=== PATIENT | female | born 1945 | race Caucasian/White ===

== ENCOUNTER 2020-04-10 16:37 | Emergency (ER) | payer MEDICARE, OTHER ==
[~2020-04-10] VITALS: Ht 167.6 cm; Wt 99.8 kg
[2020-04-10 17:01] LABS: BASOPHILS % 0.2 % (0.0-1.0); EOSINOPHILS # (AUTO) 0.1 (0.0-0.4); HEMATOCRIT 29.4 % (34.2-44.1); HEMOGLOBIN 9.1 g/dL (12.0-16.0); LYMPHOCYTES # (AUTO) 0.3 (1.0-3.2); LYMPHOCYTES % 3.9 % (18.0-39.1); MEAN CORPUSCULAR HEMOGLOBIN 27.4 pg (28-32); MEAN CORPUSCULAR VOLUME 88.6 fL (81-99); MONOCYTES # (AUTO) 0.2 (0.2-0.8); MONOCYTES % 2.5 % (4.4-11.3); NEUTROPHILS # (AUTO) 7.5 (2.1-6.9); NEUTROPHILS % 91.4 % (38.7-80.0); PLATELET COUNT 301 x10e3/uL (140-360); RED BLOOD COUNT 3.32 x10e6/uL (3.6-5.1); RED CELL DISTRIBUTION WIDTH 12.8 % (11.7-14.4)
[2020-04-10] MEDS ORDERED: WOMEN'S DAILY1 EAC2 PO (17:12)
[2020-04-10] MEDS ORDERED: OMEGA-31000 MG PO (17:12)
[2020-04-10] MEDS ORDERED: TRICOR48 MG PO (17:12)
[2020-04-10] MEDS ORDERED: B COMPLEX1 EACH PO (17:12)
[2020-04-10] MEDS ORDERED: KLOR-CON 1010 MEQ PO (17:12)
[2020-04-10] MEDS ORDERED: CRESTOR10 MG (17:12)
[2020-04-10] MEDS ORDERED: VALSARTAN40 MG PO (17:12)
[2020-04-10] MEDS ORDERED: GABAPENTIN300 MG PO (17:12)
[2020-04-10] MEDS ORDERED: FLUOXETINE HCL20 M1 PO (17:12)
[2020-04-10] MEDS ORDERED: NIACIN500 M3 PO (17:12)
[2020-04-10] MEDS ORDERED: ASPIR 8181 MG PO (17:12)
[2020-04-10] MEDS ORDERED: TRAZODONE HCL50 MG PO (17:12)
[2020-04-10] MEDS ORDERED: CRANBERRY450 M2 (17:13)
[2020-04-10] MEDS ORDERED: FERROUS SULFAT324 MG (17:13)
[2020-04-10 17:17] LABS: ALBUMIN/GLOBULIN RATIO 0.5 (0.8-2.0); CREATININE, SERUM 1.2 mg/dL (0.57-1.11)
[2020-04-10 17:23] LABS: CREATINE KINASE MB 1.9 ng/mL (0-5.0)
[2020-04-10] MEDS ORDERED: CEFTRIAXONE SOD 1 GM/NS 50 ML 50 ML IV ONE (17:30)
--- NOTE | 2020-04-10 17:47 | Emergency Department Note ---
History of Present Illnes History of Present Illness Chief Complaint: COVID PUI History of Present Illness This is a 74 year old female brought from home by EMS for evaluation of weakness. 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 Any updates have been documented here. Past Medical History Recent Fever: Yes Clinical Suspicion of Infectio: Yes New/Unexplained Change in Ment: No Past Medical History: Hypertension, Anemia, Anxiety, Depression, Other Mental Illness, Hyperlipedemia Other Medical History: MS ([place]) Social History Smoking Cessation: Never Smoker Alcohol Use: None Any Illegal Drug Use: No Physically hurt or threatened: No Review of Systems Review of Systems Constitutional: Reports weakness EENTM: Reports no symptoms Cardiovascular: Reports no symptoms Respiratory: Reports no symptoms Gastrointestinal: Reports no symptoms Genitourinary: Reports no symptoms Musculoskeletal: Reports no symptoms Integumentary: Reports no symptoms Neurological: Reports no symptoms Psychological: Reports no symptoms Endocrine: Reports no symptoms Hematological/Lymphatic: Reports no symptoms Physical Exam Related Data Allergies: Coded Allergies: No Known Allergies (Unverified , 04/10/20) Triage Vital Signs Vital Signs Date Time Temp Pulse Resp B/P (MAP) Pulse Ox O2 Delivery O2 Flow Rate FiO2 04/10/20 16:50 102.4 130 20 180/58 98 Room Air Vital signs reviewed: Yes Physical Exam CONSTITUTIONAL Constitutional: Present obese, Present cachectic, Present ill appearing HENT HENT: Present normocephalic, Present atraumatic, Present oropharynx clear/moist, Present nose normal HENT L/R: Present left ext ear normal, Present right ext ear normal EYES Eyes: Reports PERRL, Reports conjunctivae normal NECK Neck: Present ROM normal PULMONARY Pulmonary: Present effort normal, Present breath sounds normal CARDIOVASCULAR Cardiovascular: Present tachycardia, Present LLE edema, Present RLE edema GASTROINTESTINAL Abdominal: Present soft, Present nontender, Present bowel sounds normal GENITOURINARY Genitourinary: Present exam deferred SKIN Skin: Present warm, Present dry MUSCULOSKELETAL Musculoskeletal: Present ROM normal NEUROLOGICAL Neurological: Present weakness PSYCHOLOGICAL Psychological: Present mood/affect normal, Present judgement normal Results Laboratory Result Diagram: 04/10/200 04/10/20 1650 Laboratory Laboratory Tests Test 04/10/20 16:50 White Blood Count 8.24 x10e3/uL (4.8-10.8) Red Blood Count 3.32 x10e6/uL (3.6-5.1) Hemoglobin 9.1 g/dL (12.0-16.0) Hematocrit 29.4 % (34.2-44.1) Mean Corpuscular Volume 88.6 fL (81-99) Mean Corpuscular Hemoglobin 27.4 pg (28-32) Mean Corpuscular Hemoglobin Concent 31.0 g/dL (31-35) Red Cell Distribution Width 12.8 % (11.7-14.4) Platelet Count 301 x10e3/uL (140-360) Neutrophils (%) (Auto) 91.4 % (38.7-80.0) Lymphocytes (%) (Auto) 3.9 % (18.0-39.1) Monocytes (%) (Auto) 2.5 % (4.4-11.3) Eosinophils (%) (Auto) 1.0 % (0.0-6.0) Basophils (%) (Auto) 0.2 % (0.0-1.0) Neutrophils # (Auto) 7.5 (2.1-6.9) Lymphocytes # (Auto) 0.3 (1.0-3.2) Monocytes # (Auto) 0.2 (0.2-0.8) Eosinophils # (Auto) 0.1 (0.0-0.4) Basophils # (Auto) 0.0 (0.0-0.1) Absolute Immature Granulocyte (auto 0.08 x10e3/uL (0-0.1) Sodium Level 136 mmol/L (136-145) Potassium Level 5.0 mmol/L (3.5-5.1) Chloride Level 107 mmol/L (98-107) Carbon Dioxide Level 21 mmol/L (22-29) Anion Gap 13.0 mmol/L (8-16) Blood Urea Nitrogen 61 mg/dL (7-26) Creatinine 1.20 mg/dL (0.57-1.11) Estimat Glomerular Filtration Rate 44 ML/MIN (60-) BUN/Creatinine Ratio 51 (6-25) Glucose Level 250 mg/dL (74-118) Lactic Acid Level 2.4 mmol/L (0.5-2.0) Calcium Level 8.0 mg/dL (8.4-10.2) Total Bilirubin 0.3 mg/dL (0.2-1.2) Aspartate Amino Transf (AST/SGOT) 20 IU/L (5-34) Alanine Aminotransferase (ALT/SGPT) 14 IU/L (0-55) Alkaline Phosphatase 100 IU/L (40-150) Creatine Kinase 24 IU/L (29-168) Creatine Kinase MB 1.90 ng/mL (0-5.0) Troponin I 0.036 ng/mL (0-0.300) Total Protein 6.2 g/dL (6.5-8.1) Albumin 2.0 g/dL (3.5-5.0) Globulin 4.2 g/dL (2.3-3.5) Albumin/Globulin Ratio 0.5 (0.8-2.0) Lab results reviewed: Yes Imaging Imaging results reviewed: Yes Impressions [place] [id number] Patient Name: SALEEM JIMENEZ MR #: [id number] : 1945 Age/Sex: 74/F Req #: [id number] Adm Physician: Ordered by: AMINA ALEMAN DO Report #: [id number] Location: ER Room/Bed: Procedure: [id number] DX/CHEST SINGLE (PORTABLE) Exam Date: 04/10/20 Exam Time: 1654 REPORT STATUS: Signed EXAMINATION: CHEST SINGLE (PORTABLE) INDICATION: Cough. Possible Covid 19. COMPARISON: None FINDINGS: TUBES and LINES: None. LUNGS: There is hazy opacification of the bilateral lung bases, left moderate right. PLEURA: No pleural effusion or pneumothorax. HEART AND MEDIASTINUM: The cardiomediastinal silhouette is unremarkable. BONES AND SOFT TISSUES: No acute osseous lesion. Soft tissues are unremarkable. UPPER ABDOMEN: No free air under the diaphragm. IMPRESSION: Hazy opacification the bilateral lung bases, left more to right, which may represent atelectasis or developing multifocal pneumonia. Signed by: Tierney Del Valle MD on 04/10/2020 5:46 PM Dictated By: TIERNEY DEL VALLE MD 45 Transcribed By: SAMIRA on 04/10/201745 COPY TO: AMINA ALEMAN DO~ Assessment & Plan Medical Decision Making MDM 74 yof presents presents with signs and symptoms concerning for sepsis . Blood cx x 2 and blood cx ordered with abx given. Lactic acid obtained. Patient suspected to have the COVID-19 infection; aspects of the SEP-1 were deviated from to avoid fluid overload Assessment & Plan Final Impression: (1) UTI (urinary tract infection) (2) Sepsis (3) Person under investigation for COVID-19 Depart Disposition: ADMITTED Last Vital Signs Date Time Temp Pulse Resp B/P (MAP) Pulse Ox O2 Delivery O2 Flow Rate FiO2 04/10/20 16:50 102.4 130 20 180/58 98 Room Air Home Meds Active Scripts Azithromycin (Z-ERIKA) 250 Mg Tablet, 1 PKG PO DIRECTED, #1 PKG 0 Refills Prov:AMINA ALEMAN DO 04/11/20 Reported Medications Cranberry Fruit (CRANBERRY) 450 Mg Tablet 04/10/20 Ferrous Sulfate (FERROUS SULFATE) 324 Mg Tablet. 04/10/20 Rosuvastatin Calcium (CRESTOR) 10 Mg Tab THERAPEUTICALLY SUBSTITUTED WITH SIMVASTATIN 40MG 04/10/20 Gabapentin (GABAPENTIN) 300 Mg Capsule, 2 CAP PO DAILY, #60 CAP 04/10/20 Trazodone Hcl (TRAZODONE HCL) 50 Mg Tablet, 25 MG PO DAILY, #30 TAB 04/10/20 Fenofibrate (TRICOR) 48 Mg Tab, 48 MG PO DAILY, #30 TAB 04/10/20 Multivits,Ca,Minerals/Iron/Fa (WOMEN'S DAILY CAPLET) 1 Each Tablet, 1 TAB PO DAILY 04/10/20 Vitamin B Complex (B COMPLEX) 1 Each Tablet, 1 TAB PO DAILY 04/10/20 [place]-3 Fatty Acids (OMEGA-3) 1,000 Mg Capsule, 1 TAB PO DAILY 04/10/20 Potassium Chloride (KLOR-CON 10) 10 Meq Tablet.er, 1 TAB PO DAILY 04/10/20 Fluoxetine Hcl (FLUOXETINE HCL) 20 Mg Tablet, 40 MG PO DAILY 04/10/20 Aspirin (ASPIR 81) 81 Mg Tablet.dr, 1 TAB PO DAILY 04/10/20 Valsartan (Valsartan) 40 Mg Tablet, 1 TAB PO DAILY 04/10/20 Niacinamide (Niacin) 500 Mg Tablet, 1 TAB PO DAILY 04/10/20 Medications in the ED Ceftriaxone Sodium 50 ml @ 100 mls/hr ONCE ONCE IV ; Start 04/10/20 at 17:30; Stop 04/10/20 at 17:59 Azithromycin 250 ml @ 200 mls/hr ONCE ONCE IV ; Start 04/10/20 at 18:00; Stop 04/10/20 at 19:14 MAYANK NGUYEN DO Apr 10, 2020 17:47
[2020-04-10 17:56] LABS: BILIRUBIN,URINE NEGATIVE (NEGATIVE); CLARITY,URINE SL CLOUDY (CLEAR); COLOR,URINE YELLOW (YELLOW); KETONES,URINE NEGATIVE (NEGATIVE); LEUKOCYTE ESTERASE ,URINE LARGE (NEGATIVE); NITRITE,URINE POSITIVE (NEGATIVE); PROTEIN,URINE DIPSTICK 2+ (NEGATIVE); URINE UROBILINOGEN 0.2 mg/dL (0.2 - 1)
[2020-04-10] MEDS ORDERED: AZITHROMYCIN 500MG/NS 250 ML 250 ML IV ONE (18:00)
[2020-04-10] MEDS ORDERED: ACETAMINOPHEN 325 MG SUPP PR ONE (18:00)
--- NOTE | 2020-04-10 18:07 | NUR ---
alton Gannon - gabbi Mallory -
[2020-04-10 18:08] LABS: BACTERIA,URINE MANY /HPF; WBC,URINE (MAN) 21-50 /HPF (0-5)
[2020-04-10] MEDS ORDERED: SODIUM CHLORIDE 0.9% 1000ML 1,000 ML IV STA (18:58)
[2020-04-10] MEDS ORDERED: ACETAMINOPHEN 325 MG TAB PO STA (19:47)
[2020-04-11] MEDS: PIPER-TAZ 3.375 GM 50 ML IV SCH ×2 (01:27→09:06)
--- NOTE | 2020-04-11 06:53 | NUR ---
report given to fuentes pappas
--- NOTE | 2020-04-11 07:05 | NUR ---
walking rounds with fuentes pappas
--- NOTE | 2020-04-11 07:07 | NUR ---
Nursing report received from Rusty THAYER.
--- NOTE | 2020-04-11 09:09 | NUR ---
Spoke to Jagdeep Guillen per Dr. Ku pt is ready to discharge to home and notified spouse that she will need transportation. Spouse has wheelchair van and will transport patient to home.
[2020-04-11] MEDS ORDERED: AZITHROMYCIN250 MG PO (09:46)
--- NOTE | 2020-04-11 09:55 | Diagnostic Imaging Report ---
EXAM: CHEST SINGLE (PORTABLE) DATE: 04/11/2020 9:18 AM INDICATION: Cough, Covid-19 COMPARISON: 04/10/2020 FINDINGS: The trachea is midline. Minimally increased opacities again noted within the left lung base and perihilar region, similar to the prior examination. There is no evidence for new focal consolidation, pneumothorax, or significant pleural effusion The cardiomediastinal silhouette is stable in appearance. No acute osseous abnormality is identified IMPRESSION: No significant interval change from 04/10/2020. Signed by: Dr. Fracisco Yao MD on 04/11/2020 9:52 AM
--- NOTE | 2020-04-11 09:56 | NUR ---
Patient reevaluated bedside, does not require any supplemental O2, appears comfortable. Chest x-ray is concerning for possible pneumonia, patient is still under suspicion for Covid 19. At this point the patient can be discharged home with by mouth antibiotics, red flags for return given.
--- NOTE | 2020-04-11 10:58 | NUR ---
Pt discharge home with prescription for z-pack. Pt and family verbalized understanding of ED discharge and follow-up care.
--- NOTE | 2020-04-14 10:53 | NUR ---
Pt notified of COVID test results and need to return to ED if s/s worsened. Pt verbalizes understanding.
== END 2020-04-11 10:55 | disposition home or self-care (01) ==
LOC: ER 18:01
DX: A41.9 Sepsis, unspecified organism (principal); N39.0 Urinary tract infection, site not specified; R53.1 Weakness; R50.9 Fever, unspecified; R05 Cough; G35 Multiple sclerosis; I10 Essential (primary) hypertension; E78.5 Hyperlipidemia, unspecified; D64.9 Anemia, unspecified; F41.9 Anxiety disorder, unspecified; Z11.59 Encounter for screening for other viral diseases; Z74.01 Bed confinement status
CPT/HCPCS: 36415; 71045 ×2; 80053; 81001; 82550; 82553; 83605; 84484; 85025; 87040; 87071; 87186; 87205; 99284; J0456; J0696; J2543; J7030; U0002